=== PATIENT | male | born 1990 | race African-American/Black ===

== ENCOUNTER 2023-07-31 13:34 | Emergency (ER) | payer BC, SELFPAY ==
[2023-07-31 13:50] VITALS: BP 142/91; PULSE 89; RESP 14; TEMP 37.1; O2SAT 100
--- NOTE | 2023-07-31 13:50 | ED.EXTPRO ---
HPI - Extremity Problem General Chief complaint: Extremity Problem,Nontraumatic Stated complaint: both feet swollen,red,numb Time Seen by Provider: 07/31/23 14:12 Source: patient and RN notes reviewed Mode of arrival: ambulatory Limitations: no limitations History of Present Illness HPI Narrative: 33-year-old male presents with concern for bilateral feet redness, warmth, pain, swelling. Reports symptoms started yesterday. Reports swelling got better overnight. He denies any injury or trauma. Denies itching, rash, open skin. He denies any history of similar problems. Denies history of autoimmune disorder. He denies malaise, chills, sweats. Reports 1 week ago had 1 incidence of a fever with no other symptoms. MD Complaint: extremity pain Related Data Allergies Allergy/AdvReac Type Severity Reaction Status Date / Time No Known Allergies Allergy Verified 07/31/23 14:07 Review of Systems Review of Systems: CONSTITUTIONAL: Denies malaise, chills, sweats, or fever. CARDIOVASCULAR: Denies chest pain, palpitations, or edema. RESPIRATORY: Denies cough or dyspnea. SKIN: Denies rash or itching, bruising MUSCULOSKELETAL: Reports bilateral redness, warmth, pain, swelling of the feet, numbness in the bottom of the feet NEUROLOGIC: Denies numbness, weakness All systems reviewed & are unremarkable except as noted in HPI and below PMFSH Comments At time of signature, agree with nursing past medical, surgical, social and family history. There is no relevant family history pertinent to the presenting complaint Exam Narrative: GENERAL: Well-appearing, well-nourished, and in no acute distress. HEAD: Normocephalic, atraumatic. EYES: PERRLA, conjunctivae clear, and EOMI. ENT: Mucous membranes moist. Oropharynx without edema, erythema or lesions. NECK: Supple. No lymphadenopathy CHEST: Clear to auscultation. No respiratory distress. HEART: Regular rate and rhythm. SKIN: Warm, dry. Erythema and warmth noted to bilateral feet, in the same pattern on both feet. MUSC: No tenderness, normal strength, range of motion NEURO: Alert and oriented x3. PSYCH: Normal mood and affect Course Course Emergency Course: Patient is aware of diagnosis, understands and agrees to treatment plan. Anticipatory guidance given. Patient agrees to follow-up as directed and is aware of reasons to seek care at the emergency department. Portions of this record may have been created with voice recognition software Level of Care: Express Care Visit Vital Signs Vital signs: Reviewed. MDM - Extremity (Nontraumatic) MDM Narrative Medical decision making narrative: I evaluated this patient in the [facility] care. History is obtained from patient who is an independent historian and physical exam was performed.? Available medical records were reviewed. ? Exam findings and relevant testing show no acute concerns or changes; patient is non-toxic appearing and is in no distress. ? Differential diagnosis and treatment plan were discussed with the patient. Patient agrees with discussion and after shared medical decision making agrees with plan of care. All questions were answered to the patient's satisfaction. Patient is appropriate for outpatient treatment and follow-up. Differential Diagnosis Differential diagnosis: Likely herpes zoster, gout, cellulitis, superficial thrombophlebitis, deep vein thrombosis of lower extremity and other (tinea) Critical Care Time Critical Care Time Critical Care Time: No Discharge Plan Discharge Clinical Impression: Erythromelalgia Patient Disposition: Home, Self-Care Condition: Stable Instructions: General Patient Instructions Additional Instructions: Elevate your feet take measures to keep your feet cool such as bleeding in air, using full water or ice. Take anti-inflammatories as directed To make a follow-up appointment with primary care doctor for further evaluation. If you have any urgent concerns please go to
== END 2023-07-31 14:23 | disposition home or self-care (01) ==
PROVIDERS: Emergency Provider Nurse Practitioner
DX: I73.81 Erythromelalgia (principal)
CPT/HCPCS: 99203; G0463